=== PATIENT | female | born 1980 | race Caucasian/White ===

== ENCOUNTER 2017-08-04 10:12 | Emergency (ER) | payer BC ==
[2017-08-04 10:12] VITALS: BMI 27.9
[2017-08-04 10:30] VITALS: RESP 18
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
[2017-08-04 16:45] VITALS: BP 112/59; PULSE 100; TEMP 97.3
[2017-08-07 14:44] VITALS: O2SAT 98
== END 2017-08-04 12:30 | disposition home or self-care (01) ==
LOC: C.ER 10:12 → C.EROB 10:12
DX: S39.92XA Unspecified injury of lower back, initial encounter (principal); W50.0XXA Accidental hit or strike by another person, initial encounter; Y92.219 Unspecified school as the place of occurrence of the external cause; Y99.0 Civilian activity done for income or pay; O26.92 Pregnancy related conditions, unspecified, second trimester; Z3A.22 22 weeks gestation of pregnancy

== ENCOUNTER 2017-11-25 07:55 | Inpatient (IN) | payer BC ==
[2017-11-25] MEDS ORDERED: cefOXitin IV 2 gm in Dextrose 2 GM/50 ML BAG IVPB ONE (08:32)
[2017-11-25] MEDS ORDERED: Sodium Citrate/Citric Acid 15 ml Sol PO ONE (08:32)
[2017-11-25] MEDS ORDERED: Lactated Ringer's 1,000 ML IV ONE (08:32)
[2017-11-25] MEDS ORDERED: ePHEDrine 50 mg/ml Inj ONE (08:58)
[2017-11-25] MEDS ORDERED: Morphine 1 mg/ml preservative-free Inj(Duramorph) ONE (08:58)
[2017-11-25] MEDS ORDERED: cefOXitin IV 2 gm in Saline 2 GM/50 ML BAG IVPB ONE (09:05)
[2017-11-25] MEDS ORDERED: Sodium Citrate/Citric Acid 15 ml Sol ONE (09:05)
[2017-11-25] MEDS ORDERED: Oxytocin 20 units in LR 2,000 ML IV ONE ×2 (09:06→10:33)
[2017-11-25 09:08] LABS: BASO # 0.1 K/uL (0.0-0.2); BASO % 0.6 % (0.0-2.0); EOS # 0.2 K/uL (0.0-0.7); EOS % 1.5 % (0.0-4.0); HEMOGLOBIN 12.9 g/dL (11.0-16.0); LYMPH # 1.8 K/uL (1.0-4.3); LYMPH % 15.8 % (20.0-40.0); MEAN CELL VOLUME 86.9 fL (81.0-99.0); MEAN CORPUSCULAR HEMOGLOBIN 29.5 pg (27.0-31.0); MEAN CORPUSCULAR HGB CONC 33.9 g/dL (33.0-37.0); MEAN PLATELET VOLUME 9.9 fL (7.2-11.7); MONO # 0.7 K/uL (0.0-0.8); MONO % 5.9 % (0.0-10.0); NEUT # 8.9 K/uL (1.8-7.0); NEUT % 76.2 % (50.0-75.0); RBC 4.39 Mil/uL (3.80-5.20); RED CELL DISTRIBUTION WIDTH 14.6 % (11.5-14.5); WHITE BLOOD COUNT 11.6 K/uL (4.8-10.8)
[2017-11-25 09:18] LABS: SQUAMOUS EPITHIAL 20 /hpf (0-5); URINE BILIRUBIN NEGATIVE (NEGATIVE); URINE BLOOD NEGATIVE (NEGATIVE); URINE CLARITY Hazy (Clear); URINE COLOR Yellow (YELLOW); URINE GLUCOSE (UA) NORMAL (Normal); URINE LEUKOCYTE ESTERASE NEG Leu/uL (Negative); URINE PROTEIN NEGATIVE (NEGATIVE); URINE UROBILINOGEN NORMAL mg/dL (0.2-1.0)
[2017-11-25 09:24] LABS: ALB/GLOB RATIO 1.2 (1.0-2.1); ALBUMIN 3.6 g/dL (3.5-5.0); ALT/SGPT 22 U/L (9-52); AST/SGOT 21 U/L (14-36); BLOOD UREA NITROGEN 5 mg/dL (7-17); CALCIUM 9.2 mg/dl (8.6-10.4); GFR AFRICAN-AMERICAN > 60; GFR NON-AFRICAN AMERICAN > 60
--- NOTE | 2017-11-25 09:48 | OBHP ---
Datetime: 11/25/2017 08:32 IP Adm Impression: Term, intrauterine ; No Active Labor; Intact Membranes IP Adm Impression Other: Previous C/S x 2; hypothyroid; Advanced maternal age IP Admit Plan: Admit to unit; Initiate Section protocol Admit Comment, IP Provider: This is a private patient of Dr. Fowler 37 y.o. , LMP 03/05/17, revised LIZBETH 12/03/17, EGA 38w 6d previous C/S x 2 c/o Ctx onset las t night, pain scale 5/10. (+) AFM; denies LOF, VB. care: Dr. Fowler, noted for AMA and hyp othyroid P Ob: C/S x 2: 2011, female, 7+lb [facility] [place], Arrest of dilatation at 6 cm; no other complicatoins. 201 4, male, [facility] [place], elective repeat, no complications. 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 No h/o abnormal Pap, ovarian cysts, fibroids PMH: denies PSH: C/S x2 NKDA Meds: PNV; synthroid 150 micrograms Soc Hx: denies tobacco , iilicit drug or EtOH use. x 7 years. 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 Fam Hx: Mother age 74 secondary to CVA, h/o DM and HTN. Father alive 84y.o. HTN, DM. P.E.: as above. WD in NAD. Awake, alert, oriented to time person and place. Pleasant and cooperati ve Assessment: 37 y.o. , 38w 6d, previous C/S x 2, uterine contractions, hypothyroid on meds. Category [address] Fowler to obtain surgical consents Plan: 1) Admit 2) NPO 3) Admission labs 4) Continuous EFM 5) Pre-op for the O.R. Pelvic Type - PN: Not Done Extremities - PN: Normal Abdomen - PN: Normal Back - PN: Normal Breast - PN: Normal Lungs - PN: Normal Heart - PN: Normal Thyroid - PN: Not Done Neurologic - PN: Normal HEENT - PN: Normal General - PN: Normal Presentation-Admit: Vertex FHR - Baseline A Provider: 125 Contraction Comments Provider: irregular Comments, ACOG Physical Exam: Abdomen: Gravid. Mildly firm with contractions. All other systems reviewed and are negative Gestation - Est Wks by US: 38w 6d IP Hx Assessment: The History has been Reviewed and is Current EGA AdmitDate IP: 38.6 Vital Signs Provider: Reviewed IP Chief Complaint: Uterine contractions NICHD Variability Prov Fetus A: Moderate 6-25bpm NICHD Accel Fetus A IP Provider: [id number] FHR Category Provider Fetus A: Category I NICHD Decel Fetus A IP Provider: None Dilatation, Provider: deferred Genitourinary Exam: Not Done DTRs - PN: Normal
[2017-11-25] MEDS ORDERED: Oxycodone/Acetaminophen 5/325 mg Tab PO PRN (10:15)
[2017-11-25] MEDS ORDERED: Tdap Vaccine 0.5 ml Vial (10-64 yrs) IM ONE (10:16)
[2017-11-25] MEDS ORDERED: Dexamethasone 4 mg/1 ml IVP PRN (11:19)
[2017-11-25] MEDS ORDERED: DiphenhydrAMINE 50 mg/ml Inj ONE (13:09)
[2017-11-25] MEDS: Levothyroxine 150 MCG TAB PO SCH (15:56)
[2017-11-25] MEDS: Simethicone 80 mg Chewtab PO SCH ×3 (15:56→22:30)
[2017-11-26] MEDS: Levothyroxine 150 MCG TAB PO SCH (06:38)
[2017-11-26 07:09] LABS: MEAN CELL VOLUME 87.4 fL (81.0-99.0); MEAN CORPUSCULAR HEMOGLOBIN 30.3 pg (27.0-31.0); MEAN CORPUSCULAR HGB CONC 34.6 g/dL (33.0-37.0); MEAN PLATELET VOLUME 9.5 fL (7.2-11.7); RBC 3.96 Mil/uL (3.80-5.20); RED CELL DISTRIBUTION WIDTH 14.8 % (11.5-14.5); WHITE BLOOD COUNT 11.7 K/uL (4.8-10.8)
[2017-11-26] MEDS: Simethicone 80 mg Chewtab PO SCH ×4 (09:41→21:54)
[2017-11-26] MEDS: Prenatal Multivit/Folic Acid/Iron Tab PO SCH (09:42)
[2017-11-26] MEDS ORDERED: Bisacodyl 5mg EC Tab PO ONE (10:15)
--- NOTE | 2017-11-26 10:44 | OBPPN ---
Datetime: 11/26/2017 10:38 PP Pain Prov: Within normal limits PP Nausea Prov: Denies PP Flatus Prov: Yes PP BM Prov: No PP Breasts Prov: Normal PP Heart Prov: Normal PP Lungs Prov: Normal PP Abdomen/Uterus Prov: Normal PP Lochia Prov: Normal PP Extremities Prov: Normal PP C/S Incision Prov: Normal PP Progress Prov: Normal PP Comments Phys Exam Prov: abd w/ pannus pfannensteil incision: c/d/i; no erythema/drainage. PP Impression Prov: Normal progression PP Plan Prov: Continue present management PP Progress Note Prov: s: tolerating reg diet; incisional pain assoc with movement; formula and jackeline stfeeding i: pod1 cd doing well p: rout pp care ambulate wound care and hygiene d/w pt- imp to prevent infection also d/w pt. Vital Signs Provider PP: Reviewed; Within Normal Limits
[2017-11-26] MEDS: Oxycodone/Acetaminophen 5/325 mg Tab PO PRN ×2 (11:10→22:53)
[2017-11-26] MEDS ORDERED: Docusate-Senna 50 mg-8.6 mg Tab PO SCH (22:00)
[2017-11-27] MEDS: Oxycodone/Acetaminophen 5/325 mg Tab PO PRN ×3 (05:27→16:15)
[2017-11-27] MEDS: Levothyroxine 150 MCG TAB PO SCH (06:16)
--- NOTE | 2017-11-27 08:25 | OBPPN ---
Datetime: 11/27/2017 08:21 PP Pain Prov: Within normal limits PP Nausea Prov: Present PP Flatus Prov: Yes PP BM Prov: Yes PP Breasts Prov: Normal PP Heart Prov: Normal PP Lungs Prov: Normal PP Abdomen/Uterus Prov: Normal PP Lochia Prov: Normal PP Vulva/Perineum Prov: Normal PP CVA Tenderness Prov: Normal PP Extremities Prov: Normal PP Comments Phys Exam Prov: INCISION: C/D/I PP Impression Prov: Normal progression PP Plan Prov: Continue present management PP Progress Note Prov: PT DOING WELL, CURRENTLY NO COMPLAINTS AT THIS TIME. TOLERATING PO DIET. AMBU LATING. PAIN 7/10 CONTROLLED WITH PO MEDS. PE: INCISION C/D/I EXT: NO EDEDMA POST OP CBC 12.0 A/P 38 @ 38 6/7 RCS POST OP DAY #2 1) VITALS STABLE 2) TOELRATING PO DIET. 3) AMBULATING 4) PAIN 7/10: CONTROLLED WITH PO PAIN MEDS 5) ROUTINE POST OP CARE. IP PP Procedures: None Vital Signs Provider PP: Within Normal Limits
[2017-11-27] MEDS: Prenatal Multivit/Folic Acid/Iron Tab PO SCH (09:58)
[2017-11-27] MEDS: Simethicone 80 mg Chewtab PO SCH ×3 (10:00→22:06)
[2017-11-27] MEDS ORDERED: Docusate-Senna 50 mg-8.6 mg Tab PO SCH (22:00)
[2017-11-28] MEDS: Levothyroxine 150 MCG TAB PO SCH (06:27)
--- NOTE | 2017-11-28 06:56 | OBDCSUM ---
Datetime: 11/28/2017 06:55 Discharged to, Provider: Home Follow up at, Provider: 1we Discharge Diagnosis, Provider: Term Delivered Follow up in weeks, Provider: dr gomez Discharge Comment, Provider: dc home no sex percoce,prn motron f/u n 1week Discharge Diagnosis Prov Other: s/p repeat c/s
--- NOTE | 2017-11-28 06:56 | OBPPN ---
Datetime: 11/28/2017 06:54 PP Pain Prov: Within normal limits PP Nausea Prov: Denies PP Flatus Prov: Yes PP BM Prov: Yes PP Abdomen/Uterus Prov: Normal PP Lochia Prov: Normal PP Extremities Prov: Normal PP C/S Incision Prov: Normal PP Impression Prov: Normal progression PP Plan Prov: Discharge PP Progress Note Prov: pt was sen at bed side, pin under control,no n/v, tolerating deit, voiding,mi n lochia ,+flatus+ pod#3 s/p c/s dc home no sex percoce,prn motron f/u n 1week Vital Signs Provider PP: Reviewed; Within Normal Limits
--- NOTE | 2017-11-28 07:10 | CP.PCM.DIS ---
Provider - Provider Date of Admission: 11/25/17 08:32 Attending physician: Dragan Fowler MD Time Spent in preparation of Discharge (in minutes): 90 Hospital Course - Lab Results Lab Results: Most Recent Lab Values WBC 11.7 K/uL (4.8-10.8) H 11/26/17 06:59 RBC 3.96 Mil/uL (3.80-5.20) 11/26/17 06:59 Hgb 12.0 g/dL (11.0-16.0) 11/26/17 06:59 Hct 34.6 % (34.0-47.0) 11/26/17 06:59 MCV 87.4 fL (81.0-99.0) 11/26/17 06:59 MCH 30.3 pg (27.0-31.0) 11/26/17 06:59 MCHC 34.6 g/dL (33.0-37.0) 11/26/17 06:59 RDW 14.8 % (11.5-14.5) H 11/26/17 06:59 Plt Count 179 K/uL (130-400) 11/26/17 06:59 MPV 9.5 fL (7.2-11.7) 11/26/17 06:59 Neut % (Auto) 76.2 % (50.0-75.0) H 11/25/17 08:56 Lymph % (Auto) 15.8 % (20.0-40.0) L 11/25/17 08:56 [place] % (Auto) 5.9 % (0.0-10.0) 11/25/17 08:56 Eos % (Auto) 1.5 % (0.0-4.0) 11/25/17 08:56 Baso % (Auto) 0.6 % (0.0-2.0) 11/25/17 08:56 Neut # (Auto) 8.9 K/uL (1.8-7.0) H 11/25/17 08:56 Lymph # (Auto) 1.8 K/uL (1.0-4.3) 11/25/17 08:56 [place] # (Auto) 0.7 K/uL (0.0-0.8) 11/25/17 08:56 Eos # (Auto) 0.2 K/uL (0.0-0.7) 11/25/17 08:56 Baso # (Auto) 0.1 K/uL (0.0-0.2) 11/25/17 08:56 Sodium 140 mmol/L (132-148) 11/25/17 08:56 Potassium 3.7 mmol/L (3.6-5.2) 11/25/17 08:56 Chloride 107 mmol/L (98-107) 11/25/17 08:56 Carbon Dioxide 22 mmol/L (22-30) 11/25/17 08:56 Anion Gap 14 (10-20) 11/25/17 08:56 BUN 5 mg/dL (7-17) L 11/25/17 08:56 Creatinine 0.6 mg/dL (0.7-1.2) L 11/25/17 08:56 Est GFR ( Amer) > 60 11/25/17 08:56 Est GFR (Non-Af Amer) > 60 11/25/17 08:56 Random Glucose 83 mg/dL (65-105) 11/25/17 08:56 Calcium 9.2 mg/dl (8.6-10.4) 11/25/17 08:56 Total Bilirubin 0.3 mg/dL (0.2-1.3) 11/25/17 08:56 AST 21 U/L (14-36) 11/25/17 08:56 ALT 22 U/L (9-52) 11/25/17 08:56 Alkaline Phosphatase 200 U/L (38-126) H 11/25/17 08:56 Total Protein 6.6 g/dL (6.3-8.3) 11/25/17 08:56 Albumin 3.6 g/dL (3.5-5.0) 11/25/17 08:56 Globulin 3.0 gm/dL (2.2-3.9) 11/25/17 08:56 Albumin/Globulin Ratio 1.2 (1.0-2.1) 11/25/17 08:56 Urine Color Yellow (YELLOW) 11/25/17 08:56 Urine Clarity Hazy (Clear) 11/25/17 08:56 Urine pH 6.0 (5.0-8.0) 11/25/17 08:56 Ur Specific [place] 1.012 (1.003-1.030) 11/25/17 08:56 Urine Protein Negative mg/dL (NEGATIVE) 11/25/17 08:56 Urine Glucose (UA) Normal mg/dL (Normal) 11/25/17 08:56 Urine Ketones Negative mg/dL (NEGATIVE) 11/25/17 08:56 Urine Blood Negative (NEGATIVE) 11/25/17 08:56 Urine Nitrate Negative (NEGATIVE) 11/25/17 08:56 Urine Bilirubin Negative (NEGATIVE) 11/25/17 08:56 Urine Urobilinogen Normal mg/dL (0.2-1.0) 11/25/17 08:56 Ur Leukocyte Esterase Neg Aron/uL (Negative) 11/25/17 08:56 Urine WBC (Auto) 3 /hpf (0-5) 11/25/17 08:56 Ur Squamous Epith Cells 20 /hpf (0-5) H 11/25/17 08:56 RPR Nonreactive (NONREACTIVE) 11/25/17 08:56 HIV 1&2 Antibody Screen Negative (NEGATIVE) 11/25/17 09:36 Blood Type B POSITIVE 11/25/17 09:36 Antibody Screen Positive 11/25/17 09:36 Antibody Identification Anti E 11/25/17 09:36 Antigen Identification E Antigen - NEGATIVE 11/25/17 09:36 - Hospital Course Hospital Course: Patient is 37 year old s/p repeat . Patient came to hospital complaining @ 38 weeks, 6 days, LMP 03/05/2017 with LIZBETH 12/03/2017, complaining of Ctx onset the night before admission 11/24/2017, pain scale 5/10, with positive AFM, denied LOF, VB, care was done by Dr Fowler. Patient delivered on 11/25/2017. During hospitalization, patient reported doing well and improving pain, pain was controlled with motrin 800mg PO Q6 PRN and Percocet 1 tab PO Q4 PRN. Pain was able to ambulate, and tolerating PO diet. Patient voided and passed flatus, positive lochia. vitals within normal limits. H/H as of 11/26/2017 12.0/34.6. Patient was clear to discharge on 11/28/[address] Fowler. Pain was sent home with prescription for Motrin 800mg Q6hr PRN for moderate pain and Percocet 1 tab every 6 hours PRN for severe pain. Patient is to continue vitamins for at least 3 months. Patient to follow up with Dr Fowler outpatient in 1 week. Patient is recommended to avoid intercourse, douching or tampons inside vagina, and heavy lifting for at least 6 weeks. Patient is to return to hospital if any concerning symptoms (pain, bleeding, vomiting) appear and/or worsens. - Date & Time of H&P Date of H&P: 11/28/17 Time of H&P: 07:09 Discharge Exam - Eye Exam Eye Exam: EOMI, Normal appearance - Neck Exam Neck exam: Full Rom - Respiratory Exam Respiratory Exam: Clear to PA & Lateral, NORMAL BREATHING PATTERN. absent: Rales, Rhonchi, Wheezes - Cardiovascular Exam Cardiovascular Exam: REGULAR RHYTHM, +S1, +S2 - GI/Abdominal Exam GI & Abdominal Exam: Normal Bowel Sounds - Back Exam Back exam: NORMAL INSPECTION - Neurological Exam Neurological exam: Alert - Psychiatric Exam Psychiatric exam: Normal Affect, Normal Mood - Skin Skin Exam: Intact, Normal Color Discharge Plan - Follow Up Plan Condition: GOOD Disposition: HOME/ ROUTINE
[2017-11-28] MEDS: Prenatal Multivit/Folic Acid/Iron Tab PO SCH (09:18)
[2017-11-28] MEDS: Simethicone 80 mg Chewtab PO SCH ×2 (09:18→14:12)
[2017-11-28 09:50] VITALS: BP 109/63; PULSE 89; RESP 18; O2SAT 98
[2017-11-28 20:51] VITALS: TEMP 97.9
== END 2017-11-28 15:40 | disposition home or self-care (01) | DRG 766 ==
LOC: C.EROB 07:55 → C.4D 08:32 → C.4M 14:00
PROVIDERS: ADMIT Obstetrics & Gynecology; ATTEND Obstetrics & Gynecology
PROC: 10D00Z1 Extraction of Products of Conception, Low, Open Approach (ICD-10-PCS; principal; 2017-11-25)
DX: O34.211 Maternal care for low transverse scar from previous cesarean delivery (principal); O99.284 Endocrine, nutritional and metabolic diseases complicating childbirth; E03.9 Hypothyroidism, unspecified; Z3A.38 38 weeks gestation of pregnancy; Z37.0 Single live birth